=== PATIENT | male | born 1995 | race Caucasian/White ===

== ENCOUNTER 2017-01-04 11:57 | Emergency (ER) | payer BC ==
[~2017-01-04] VITALS: Ht 190.5 cm; Wt 122.7 kg
[2017-01-04 12:04] VITALS: TEMP 36.6; Ht 190.5 cm; Wt 122.7 kg
[2017-01-04] MEDS ORDERED: SODIUM CHLORIDE 0.9% 1000ML 1,000 ML IV STA (12:38)
[2017-01-04] MEDS ORDERED: KETOROLAC TROMETHAMINE 30 MG/ML VIAL IV STA (12:38)
[2017-01-04] MEDS ORDERED: DiphenhydrAMINE HCL 50 MG/ML VIAL IV STA (12:38)
[2017-01-04] MEDS ORDERED: PROCHLORPERAZINE 5 MG/ML 2 ML VIAL IV STA (12:38)
[2017-01-04] MEDS ORDERED: MAGNESIUM SULFATE 1GM / D5W 1 GM BAG IV STA (12:40)
[2017-01-04 13:09] LABS: BASO % 0.2 %; BASO ABS # 0.03 K/uL (0-0.2); COMPLETE YES; EOS % 0.1 %; HEMATOCRIT 49.2 % (42-52); IG% 0.3 %; LYMPH ABS # 1.88 K/uL (1.2-3.4); MEAN CELL VOLUME 81.9 fL (80-100); MEAN CORPUSCULAR HEMOGLOBIN 28.1 pg (25-34); MEAN CORPUSCULAR HGB CONC 34.3 g/dl (32-36); MEAN PLATELET VOLUME 10.1 fL (7.4-10.4); MONO % 8.1 %; NEUT % 77.3 %; PLATELET COUNT 326 K/uL (130-400); RED BLOOD COUNT 6.01 M/uL (4.7-6.1)
[2017-01-04 13:09] LABS: URINE APPEARANCE CLEAR (CLEAR); URINE COLOR DK YELLOW; URINE NITRITE NEG (NEG); URINE PH 5.5 (4.5-7.5); UROBILINOGEN NEG (NEG)
[2017-01-04 13:12] LABS: MANUAL MICROSCOPIC REQUIRED? NO; REVIEW REQ? NO
[2017-01-04 13:13] LABS: URINE BILIRUBIN NEG (NEG)
[2017-01-04 13:26] LABS: BUN/CREATININE RATIO 13.8 (10-20); CALCIUM 10.3 mg/dl (8.5-10.1); CREATININE 1.3 mg/dl (0.60-1.40); POTASSIUM 4.1 mmol/L (3.5-5.1)
--- NOTE | 2017-01-04 13:53 | EMERGENCY ROOM VISIT NOTE ---
History Report prepared by Cynthia: Nancy Moreira Under the Supervision of: Dr. Nolan Dodson M.D. First contact with patient: 12:21 Chief Complaint: HEADACHE Stated Complaint: HEADACHE,VOMITTING History of Present Illness The patient is a 21 year old male who presents to the Emergency Room with complaints of a constant headache for the past two weeks. The patient states that he has been having intermittent headaches since August. He would get about 1- 2 headaches per week. He states that over the past two weeks he has had a constant headache that will not go away. He rates his pain as an 8/10 in severity. The patient is also experiencing nausea and vomiting with this constant headache. He states that has been going on for two weeks as well. His vomiting is worse when he is more active, but does not resolve with rest. 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 He has not been playing football for the past two weeks. The patient had an MRI and CT scan done earlier this week in [place]. Mother states that it only showed some bulging discs in his neck. The patient has not seen a neurologist. He does have an appointment scheduled with neurology. The patient is complaining of neck pain but denies any back pain. Source of History: patient Onset: 2 weeks ago Position: head Symptom Intensity: excruciating (8/10) Timing: constant Modifying Factors (Worsening): exertion Associated Symptoms: + neck pain, + nausea, + vomiting, No back pain Review of Systems See HPI for pertinent positives & negatives. A total of 10 systems reviewed and were otherwise negative. Past Medical & Surgical Medical Problems: (1) No significant active problems Family History No pertinent history stated. Social History Smoking Status: Never Smoker Marital Status: single Housing Status: lives with roommate Occupation Status: student Current/Historical Medications No Active Prescriptions or Reported Meds Allergies Coded Allergies: No Known Allergies (Unverified , 01/04/17) Physical Exam Vital Signs Date Time Temp Pulse Resp B/P (MAP) Pulse Ox O2 Delivery O2 Flow Rate FiO2 01/04/17 14:08 60 16 145/76 96 01/04/17 13:23 54 01/04/17 13:12 56 14 144/81 98 Room Air 01/04/17 12:04 36.6 69 20 137/88 96 Room Air Physical Exam GENERAL: Patient is a healthy-appearing well-nourished 21 year old male. HEAD: Normocephalic atraumatic EYES: Ocular movements intact pupils equal and react to light OROPHARYNX mucous membranes are moist no exudates present no erythema or edema present NECK: Supple no nuchal rigidity, no evidence of meningitis or encephalitis on exam. CHEST: Good equal expansion LUNGS: Clear and equal to auscultation CARDIAC: Normal S1 and S2 ABDOMEN: Soft nontender no guarding BACK: No CVA tenderness EXTREMITIES: No pain upon palpation normal muscle strength in all groups no clubbing cyanosis or edema NEURO: Patient is following commands and answering questions appropriately. Alert and oriented x3 Cranial Nerves 2-12 grossly intact Medical Decision & Procedures Laboratory Results 01/04/17 12:52 Red Blood Count 6.01, Mean Corpuscular Volume 81.9, Mean Corpuscular Hemoglobin 28.1, Mean Corpuscular Hemoglobin Concent 34.3, Mean Platelet Volume 10.1, Neutrophils (%) (Auto) 77.3, Lymphocytes (%) (Auto) 14.0, Monocytes (%) (Auto) 8.1, Eosinophils (%) (Auto) 0.1, Basophils (%) (Auto) 0.2, Neutrophils # (Auto) 10.35, Lymphocytes # (Auto) 1.88, Monocytes # (Auto) 1.08, Eosinophils # (Auto) 0.02, Basophils # (Auto) 0.03 01/04/17 12:52 Test 01/04/17 12:45 01/04/17 12:52 Urine Color DK YELLOW Urine Appearance CLEAR (CLEAR) Urine pH 5.5 (4.5-7.5) Urine Specific [place] 1.030 (1.000-1.030) Urine Protein NEG (NEG) Urine Glucose (UA) NEG (NEG) Urine Ketones TRACE (NEG) Urine Occult Blood NEG (NEG) Urine Nitrite NEG (NEG) Urine Bilirubin NEG (NEG) Urine Urobilinogen NEG (NEG) Urine Leukocyte Esterase NEG (NEG) White Blood Count 13.40 K/uL (4.8-10.8) Red Blood Count 6.01 M/uL (4.7-6.1) Hemoglobin 16.9 g/dL (14.0-18.0) Hematocrit 49.2 % (42-52) Mean Corpuscular Volume 81.9 fL (80-100) Mean Corpuscular Hemoglobin 28.1 pg (25-34) Mean Corpuscular Hemoglobin Concent 34.3 g/dl (32-36) Platelet Count 326 K/uL (130-400) Mean Platelet Volume 10.1 fL (7.4-10.4) Neutrophils (%) (Auto) 77.3 % Lymphocytes (%) (Auto) 14.0 % Monocytes (%) (Auto) 8.1 % Eosinophils (%) (Auto) 0.1 % Basophils (%) (Auto) 0.2 % Neutrophils # (Auto) 10.35 K/uL (1.4-6.5) Lymphocytes # (Auto) 1.88 K/uL (1.2-3.4) Monocytes # (Auto) 1.08 K/uL (0.11-0.59) Eosinophils # (Auto) 0.02 K/uL (0-0.5) Basophils # (Auto) 0.03 K/uL (0-0.2) RDW Standard Deviation 38.0 fL (36.4-46.3) RDW Coefficient of Variation 12.7 % (11.5-14.5) Immature Granulocyte % (Auto) 0.3 % Immature Granulocyte # (Auto) 0.04 K/uL (0.00-0.02) Anion Gap 7.0 mmol/L (3-11) Est Creatinine Clear Calc Drug Dose 127.9 ml/min Estimated GFR () 91.0 Estimated GFR (Non- 78.5 BUN/Creatinine Ratio 13.8 (10-20) Calcium Level 10.3 mg/dl (8.5-10.1) Total Bilirubin 0.9 mg/dl (0.2-1) Direct Bilirubin 0.3 mg/dl (0-0.2) Aspartate Amino Transf (AST/SGOT) 32 U/L (15-37) Alanine Aminotransferase (ALT/SGPT) 81 U/L (12-78) Alkaline Phosphatase 111 U/L (45-117) Total Creatine Kinase 82 U/L (39-308) Total Protein 8.8 gm/dl (6.4-8.2) Albumin 4.5 gm/dl (3.4-5.0) Lipase 191 U/L (73-393) Lyme Disease IgG Antibody NEG (NEG) Lyme Disease IgM Antibody NEG (NEG) Monoscreen NEG (NEG) Labs reviewed by ED physician. Medications Administered Medications (Trade) Dose Ordered Sig/Reva Route Start Time Stop Time Status Last Admin Dose Admin Sodium Chloride 1,000 ml @ 999 mls/hr Q1H1M STAT IV 01/04/17 12:38 01/04/17 13:38 DC 01/04/17 13:04 999 MLS/HR Ketorolac Tromethamine (Toradol Inj) 30 mg NOW STAT IV 01/04/17 12:38 01/04/17 12:40 DC 01/04/17 13:01 30 MG Prochlorperazine Edisylate (Compazine Inj) 10 mg NOW STAT IV 01/04/17 12:38 01/04/17 12:40 DC 01/04/17 13:01 10 MG Diphenhydramine HCl (Benadryl Inj) 50 mg NOW STAT IV 01/04/17 12:38 01/04/17 12:40 DC 01/04/17 13:01 50 MG Magnesium Sulfate (Magnesium Sulfate) 1 gm NOW STAT IV 01/04/17 12:40 01/04/17 12:42 DC 01/04/17 13:01 1 GM ED Course 1221: Past medical records reviewed. The patient was evaluated in room B2. A complete history and physical examination was performed. 1238: Benadryl 50 mg IV, Compazine 10 mg IV, Toradol 30 mg IV, NSS 1000 ml @ 999 mls/hr IV 1240: Magnesium Sulfate 1 gm IV 1328: I spoke with the [facility]. We discussed the patient's case and they will see the patient in the office today at 2:15. 1331: I reassessed the patient at this time. He is feeling better and resting comfortably. I discussed the results and treatment plan with the patient and his mother. I answered all pertaining questions that they had. They expressed understanding and verbalized agreement. The patient will be discharged to follow up at the concussion clinic. Medical Decision Differential diagnosis: Etiologies such as migraine headache, meningitis, sinusitis, CO exposure, ICH, SAH, infection, tumor, headache, sinus thrombosis, arterial dissection, as well as others were entertained. This is a 21-year-old male who presents emergency department with a headache that has been ongoing for the past 2 weeks. The patient plays football and arrives with MRIs of his head as well as the cervical spine that were performed and [place]. The patient came to the emergency department with the hopes of seeing a neurologist. An IV was established, the patient given normal saline bolus, Toradol, Compazine, Benadryl. The patient has no evidence of meningitis encephalitis on examination. Because the patient plays football and activity seems to make his headaches worsen., I did discuss the case with the concussion clinic who agreed to see the patient today. The patient was immediately discharged from the emergency department sent to the concussion clinic. He does have a slight elevation in his white blood count cell, 13. The concussion clinic was concerned that the patient does not have a concussion but most likely has viral meningitis. He will be sent back to the emergency department for further workup. Medication Reconcilliation Current Medication List: was personally reviewed by me Blood Pressure Screening Patient's blood pressure: Elevated blood pressure Blood pressure disposition: Referred to PCP Consults Time Called: 1324 Consulting Physician: [facility] Returned Call: 1328 I spoke with the [facility]. We discussed the patient's case and they will see the patient in the office today at 2:15. Impression Primary Impression: Headache Scribe Attestation The scribe's documentation has been prepared under my direction and personally reviewed by me in its entirety. I confirm that the note above accurately reflects all work, treatment, procedures, and medical decision making performed by me. Departure Information Dispostion Home / Self-Care Prescriptions No Active Prescriptions or Reported Meds Referrals No Doctor, Assigned (PCP) Forms HOME CARE DOCUMENTATION FORM, IMPORTANT VISIT INFORMATION Patient Instructions My [facility] Additional Instructions Go Directly to [facility] (appt ao 179) [address] [facility] Follow up with DR Tapia's office You have been examined and treated today on an emergency basis only. This is not a substitute for, or an effort to provide, complete comprehensive medical care. It is impossible to recognize and treat all injuries or illnesses in a single emergency department visit. It is therefore important that you follow up closely with Dr Alexander. Call as soon as possible for an appointment. Thank you for your time and consideration. I look forward to speaking with you again soon. Please don't hesitate to call us if you have any questions. Problem Qualifiers Primary Impression: Headache Headache type: unspecified Headache chronicity pattern: unspecified pattern Intractability: not intractable Qualified Codes: R51 - Headache
[2017-01-04 14:07] LABS: LYME DISEASE AB IGG NEG (NEG); LYME DISEASE AB IGM NEG (NEG)
[2017-01-04 14:08] VITALS: BP 145/76; PULSE 60; O2SAT 96
[2017-01-04] MEDS ORDERED: ACET500C35 PO (20:12)
[2017-01-08 12:01] LABS: EBV EARLY ANTIGEN AB <9.00 U/ML
[2017-01-09] MEDS ORDERED: TRAM-10 PO (16:33)
== END 2017-01-04 14:10 | disposition home or self-care (01) ==
LOC: C.EDB 12:01
DX: R51 Headache (principal)

== ENCOUNTER 2017-01-04 15:18 | Emergency (ER) | payer BC ==
[~2017-01-04] VITALS: Ht 190.5 cm; Wt 119.9 kg
[2017-01-04 15:23] VITALS: TEMP 36.5; Ht 190.5 cm; Wt 119.9 kg
[2017-01-04] MEDS ORDERED: XYLOCAINE 1%/SOD BICARB 20 ML VIAL INFIL ONE (17:52)
[2017-01-04 18:50] LABS: CSF TOTAL PROTEIN 31.8 mg/dl (15.0-45.0)
[2017-01-04 18:51] LABS: CSF APPEARANCE CLEAR; CSF COLOR COLORLESS; CSF XANTHOCHROMIC NO XANTHOCHROMIA
[2017-01-04 18:56] LABS: CSF CHEMISTRY TUBE # 2
--- NOTE | 2017-01-04 19:54 | DIAGNOSTIC IMAGING REPORT ---
MRV HEAD WITHOUT CONTRAST CLINICAL HISTORY: elevated ICP, output MRI and CT negative TECHNIQUE: MRV of the brain COMPARISON STUDY: None FINDINGS: All major intracranial venous structures are patent. Straight sagittal and transverse sinuses are unremarkable. IMPRESSION: Normal study The above report was generated using voice recognition software. It may contain grammatical, syntax or spelling errors. Electronically signed by: Pierre Macdonald M.D. 01/04/2017 7:53 PM Dictated Date/Time: 01/04/2017 7:50 PM
[2017-01-04] MEDS ORDERED: AcetaZOLAMIDE 500 MG CAPCR PO STA (20:01)
[2017-01-04] MEDS ORDERED: ACET500C35 PO (20:12)
[2017-01-04] MEDS ORDERED: ONDANSETRON HOME PACK 4MG OD TAB PO ONE (20:15)
[2017-01-04] MEDS ORDERED: TRAMADOL HCL 50 MG HOME PACK PO ONE (20:15)
[2017-01-04 20:16] VITALS: BP 141/59; PULSE 63; O2SAT 98
--- NOTE | 2017-01-04 20:25 | EMERGENCY ROOM VISIT NOTE ---
History Report prepared by Cynthia: Carol Marie Under the Supervision of: Dr. Juan Funes M.D. First contact with patient: 15:38 Chief Complaint: REFERRED BY DOCTOR Stated Complaint: LOWER LUMBAR TEST PER DOC REFERRAL History of Present Illness The patient is a 21 year old male who presents to the Emergency Room with complaints of an intermittent headache beginning 2 weeks ago. 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 He reports that he has had an intermittent headache for the last 4 months but in the last 2 weeks it has been more constant and has significantly worsened. He notes that the pain came on with no specific cause and he did not have any specific trauma from football that he believes caused the headache. The patient states that he was seen at [place] twice for the same symptoms and reports that he has had an MRI of the head and neck. The patient states that the MRI of the neck showed degenerative disc disease and bulging discs while the MRI of the head was normal. He reports that exertion worsens his symptoms and laying down relieves his pain. He notes that at [place] he had CT scans and X-rays. He states that he has had lab work done and there is concern that his white blood cell count is high. The patient was seen at a concussion clinic today and they did not believe it was a concussion and recommended that the patient come back here for an LP. The patient complains of neck stiffness, vomiting, blurred vision, dizziness, and weight loss. He denies LOC, fevers, chills, diaphoresis, neck pain, chest pain, breathing difficulties, abdominal pain, back pain, melena, hematochezia, urinary symptoms, numbness, weakness, lymphadenopathy, rash, or other complaints. When he was seen in the ED earlier today, the patient received Toradol, compazine, and Benadryl that has relieved his head pain. Source of History: patient Onset: 2 weeks ago Position: head Quality: ache Timing: intermittent Modifying Factors (Relieving): rest, other (Toradol, Compazine, Benadryl) Review of Systems See HPI for pertinent positives and negatives. A total of ten systems were reviewed and were otherwise negative. Past Medical & Surgical Medical Problems: (1) No significant active problems Family History No pertinent family history stated. Social History Smoking Status: Never Smoker Marital Status: single Housing Status: lives with roommate Occupation Status: student Current/Historical Medications Scheduled Acetazolamide (Diamox), 500 MG PO DIRECTED Scheduled PRN Tramadol (Ultram), 50 MG PO Q6 PRN for Pain Allergies Coded Allergies: No Known Allergies (Unverified , 01/04/17) Physical Exam Vital Signs Date Time Temp Pulse Resp B/P (MAP) Pulse Ox O2 Delivery O2 Flow Rate FiO2 01/04/17 20:16 63 18 141/59 98 01/04/17 19:18 72 17 165/93 100 Room Air 01/04/17 17:00 54 16 163/83 97 Room Air 01/04/17 15:23 36.5 86 18 139/91 97 Room Air Physical Exam GENERAL: Awake, alert, well appearing, no distress HENT: Normocephalic, atraumatic. TM's normal. Oropharynx unremarkable. EYES: PERRL. EOMI. Normal conjunctiva. Sclera non-icteric. Funduscopic examination revealed unremarkable blood vessels. Questionable blurring of the optic disc on the right. NECK: Supple. No nuchal rigidity. FROM. No JVD or bruit. RESPIRATORY: CTA CARDIAC: RRR. No murmur. ABDOMEN: Soft, non distended. No tenderness to palpation. No rebound or guarding. No masses. RECTAL: Deferred. MUSCULOSKELETAL: Unremarkable. No edema. No discoloration. Gross motor strength symmetric. NEURO: Cranial nerves 2-12 grossly intact. Normal sensorium. No sensory or motor deficits noted. Speech normal. No pronator drift. Mild nuchal rigidity. SKIN: No rash or jaundice noted. LYMPH: No adenopathy. Medical Decision & Procedures ER Provider Diagnostic Interpretation: MRV revealed no evidence of thrombosis or abnormality. Laboratory Results Test 01/04/17 18:20 CSF Color COLORLESS CSF Appearance CLEAR CSF WBC 0 /uL (0-5) CSF RBC 4 /uL (0) CSF Xanthrochromic NO XANTHOCHROMIA CSF Cell Count Tube # 4 CSF Chemistry Tube # 2 CSF Glucose 56 mg/dl (40-70) CSF Total Protein 31.8 mg/dl (15.0-45.0) Laboratory results reviewed by me Medications Administered Medications (Trade) Dose Ordered Sig/Reva Route Start Time Stop Time Status Last Admin Dose Admin Ondansetron HCl (ZOFRAN ODT 4MG Home Pack) 1 homepack UD ONCE PO 01/04/17 20:15 01/04/17 20:16 DC 01/04/17 20:15 1 HOMEPACK Tramadol HCl (Ultram Home Pack) 1 homepack UD ONCE PO 01/04/17 20:15 01/04/17 20:16 DC 01/04/17 20:15 1 HOMEPACK Procedure Lumbar Puncture Indication: headache. Verbal consent was obtained after the risks and benefits were explained, including but not limited to headache, bleeding/clotting, scarring, infection, pain, and bone/joint/nerve damage. At this time, the risks of the procedure are less than the risks of NOT performing the procedure. A time out was taken and the correct patient and site identified. The patient was placed in the left lateral decubitus position and the back was prepped with betadine and draped in the standard fashion. The L3 intervertebral space was identified, anesthetized locally with 1% lidocaine without epinephrine, and the spinal needle was inserted through the skin with the bevel parallel to the dural fibers. The needle was carefully advanced into the lumbar cistern and 4 tubes of clear CSF was obtained. Opening pressure was over 42mmHg. The stylet was replaced and the needle was removed. A bandaid was placed and the patient was placed in the supine position. The patient tolerated the procedure well and there were no complications. ED Course 1537: The patient was evaluated in room C11. A complete history and physical exam was performed. 1820: I performed an LP. See procedure note. 1751: Lidocaine HCl 20ml INFIL. 1909: I spoke to Dr. Khalil of neurology. She recommended an MRV. 1915: I updated the patient and his family. They are agreeable to the MRV. Medical Decision Prior records/ancillary studies reviewed. Outpatient MR imaging and CT imaging reported as negative. Radiology reports reviewed. Triage Nursing notes reviewed and agree them. The patient's history was concerning for headache. Differential diagnosis: Etiologies such as migraine headache, meningitis, pseudotumor, sinusitis, CO exposure, ICH, SAH, infection, tumor, headache, sinus thrombosis, arterial dissection, as well as others were entertained. Physical examination findings: As above. Non-focal. ER treatment provided: Patient declined analgesia. His headache had resolved after treatment earlier today. On reassessment the patient felt well. Diamox 500 mg orally Diagnostics interpreted by me: The labs revealed an unremarkable lumbar puncture. 0 white blood cells. Gram stain unremarkable. Protein and glucose normal. Imaging studies: MRV as above Consultation: A consultation was placed with the neurologist on-call, Dr. Tammy Tapia. The case was discussed and diagnostics were reviewed. The patient appears to have pseudotumor and she recommended Diamox started after the MRV is negative. The patient was started on Diamox and will follow-up with her in the office. By the evaluation outlined above emergent etiologies such as meningitis, sinusitis, CO exposure, ICH, SAH, infection, temporal arteritis, tumor, sinus thrombosis, arterial dissection, as well as others were deemed relatively unlikely. The patient and family were informed about the findings as listed above. All questions were answered and they were very pleased with the treatment. Return instructions were outlined and the patient was discharged in stable condition. Outpatient prescription management: Diamox Referral: The patient was referred back to his primary care physician and neurology for follow-up for a recheck of the current condition. Medication Reconcilliation Current Medication List: was personally reviewed by me Blood Pressure Screening Patient's blood pressure: Elevated blood pressure Blood pressure disposition: Elevated BP felt to be situational Impression Primary Impression: Headache Additional Impression: Pseudotumor cerebri Scribe Attestation The scribe's documentation has been prepared under my direction and personally reviewed by me in its entirety. I confirm that the note above accurately reflects all work, treatment, procedures, and medical decision making performed by me. Departure Information Dispostion Home / Self-Care Prescriptions Acetazolamide (DIAMOX) 500 Mg Cap 500 MG PO DIRECTED, #30 TAB 500 mg daily for 7 days, then 500 mg twice daily Prov: Juan Funes MD 01/04/17 Referrals Mray Alexander D.O. (PCP) Patient Instructions My [facility] Additional Instructions Your lumbar puncture revealed your fluid pressure was elevated which can be consistent with a condition called pseudotumor cerebri. This is an elevated pressure within the head and is frequently associated with headaches as well as vision issues. Acetazolamide (Diamox): 500 m daily for 7 days and then one twice daily until directed otherwise by neurology. Review the package insert for all your medications. This is necessary as important health information is provided for your benefit and current care. Continue tramadol every 4 hours as needed for headache. Zofran 4 mg oral dissolving tablets: take one tablet and allow it to melt in your mouth every 4 hours as needed for nausea. DO NOT drive, drink alcohol, operate machinery, or perform dangerous activities today. You were given medications in the ER that can affect your ability to safely function or operate a vehicle. Rest today in a quiet, peaceful, dark environment and get a full 8-10 hrs of sleep tonight. Avoid loud noises, smoke/smoking, alcohol, bright lights, stress, or physical exertion today to minimize the chance the headache may return. Continue current medications. Ibuprofen(Motrin, Advil) may be used for fever or pain. Use 600mg every six hours as needed. Take with food. Avoid using more than 2400mg in a 24 hour period. Do not use 2400mg per day for more than three consecutive days without physician direction. Prolonged inappropriate use can lead to stomach upset or ulcers. (AND/OR) Acetaminophen(Tylenol) may be used for fever or pain. Use 1000mg every six hours as needed. Avoid using more than 4000mg in a 24 hour period. Return to the ER for passing out, worsening headache, vision problems, neck stiffness/pain, fevers, vomiting, worsening of your condition, or as needed. Follow-up with Dr. Tammy Tapia of neurology. Call the office Saturday morning at the number listed below. No contact sports or heavy lifting until cleared by neurology. Follow up with your primary physician next week for a recheck of your current condition. Problem Qualifiers
[2017-01-09] MEDS ORDERED: TRAM-10 PO (16:33)
== END 2017-01-04 20:27 | disposition home or self-care (01) ==
LOC: C.EDB 15:20 → C.EDC 20:27
DX: R51 Headache (principal); G93.2 Benign intracranial hypertension

== ENCOUNTER 2017-01-09 21:24 | Emergency (ER) | payer BC ==
[~2017-01-09] VITALS: Ht 190.5 cm; Wt 134.0 kg
[~2017-01-09 21:24] MED LIST: ACET500C35 PO; TRAM-10 PO
[2017-01-09 21:31] VITALS: TEMP 36.4; Ht 190.5 cm; Wt 134.0 kg
[2017-01-09 21:35] VITALS: O2SAT 96
[2017-01-09] MEDS ORDERED: MECLIZINE HCL 25 MG TAB PO STA (22:49)
[2017-01-09] MEDS ORDERED: SODIUM CHLORIDE 0.9% 1000ML 2,000 ML IV STA (22:49)
--- NOTE | 2017-01-09 22:51 | EMERGENCY ROOM VISIT NOTE ---
History Report prepared by Cynthia: Carol Marie Under the Supervision of: Dr. Nolan Dodson M.D. First contact with patient: 22:40 Chief Complaint: DIZZY Stated Complaint: DIZZY Nursing Triage Summary: Patient reports dizziness and headaches the past 2-3 weeks, seen in ED twice and was told he has extra fluid on his brain. Patient was given Diamox to help and it has made him "crazy dizzy". The headaches are better but dizziness is worse. History of Present Illness The patient is a 21 year old male who presents to the Emergency Room with complaints of constant dizziness beginning 1 week ago. The patient states that he was seen here for headaches and dizziness 2 times in the last 2-3 weeks. He reports that he was referred to the concussion clinic and sent back here to have an LP that was normal. He notes that he had an MRV and was put on Diamox that has seemed to make him severely dizzy. The patient states that his dizziness is always present even at rest and is only slightly relieved with closing his eyes. He states that standing up suddenly makes his vision go black for 2 seconds. The patient complains of high blood pressure at 180/98 and wavy vision. He reports that he has been increasing his fluids since the LP. He notes that his blood pressure drops to the 150s with standing. The patient states that his headaches have improved. Source of History: patient Onset: 1 week ago Position: other (global) Quality: other (dizziness) Timing: constant Modifying Factors (Worsening): other (standing) Modifying Factors (Relieving): other (closing eyes) Associated Symptoms: No headache Note: Pt has wavy vision and black vision with standing. Review of Systems See HPI for pertinent positives & negatives. A total of 10 systems reviewed and were otherwise negative. Past Medical & Surgical Medical Problems: (1) No significant active problems Family History No pertinent family history stated. Social History Smoking Status: Never Smoker Marital Status: single Housing Status: lives with roommate Occupation Status: student Current/Historical Medications Scheduled Acetazolamide (Diamox), 500 MG PO DIRECTED Furosemide (Lasix), 1 TAB PO DAILY Scheduled PRN Tramadol (Ultram), 50 MG PO Q6H PRN for Pain Allergies Coded Allergies: No Known Allergies (Unverified , 01/04/17) Physical Exam Vital Signs Date Time Temp Pulse Resp B/P (MAP) Pulse Ox O2 Delivery O2 Flow Rate FiO2 01/09/17 23:57 86 18 163/86 100 Room Air 01/09/17 22:56 95 140/95 115 155/99 128 125/90 01/09/17 21:46 97 01/09/17 21:35 96 Room Air 01/09/17 21:35 96 Room Air 01/09/17 21:31 36.4 100 18 151/90 100 Room Air Physical Exam GENERAL: Patient is a healthy-appearing well-nourished male HEAD: Normocephalic atraumatic EYES: Ocular movements intact pupils equal and react to light OROPHARYNX mucous membranes are moist no exudates present no erythema or edema present NECK: Supple no nuchal rigidity CHEST: Good equal expansion LUNGS: Clear and equal to auscultation CARDIAC: Normal S1 and S2 ABDOMEN: Soft nontender no guarding BACK: No CVA tenderness EXTREMITIES: No pain upon palpation normal muscle strength in all groups no clubbing cyanosis or edema NEURO: Patient is following commands and answering questions appropriately. Alert and oriented x3 Cranial Nerves 2-12 grossly intact Medical Decision & Procedures Laboratory Results 01/09/17 23:05 Red Blood Count 5.37, Mean Corpuscular Volume 81.2, Mean Corpuscular Hemoglobin 28.5, Mean Corpuscular Hemoglobin Concent 35.1, Mean Platelet Volume 10.6, Neutrophils (%) (Auto) 55.8, Lymphocytes (%) (Auto) 30.8, Monocytes (%) (Auto) 11.6, Eosinophils (%) (Auto) 1.3, Basophils (%) (Auto) 0.3, Neutrophils # (Auto ) 5.07, Lymphocytes # (Auto) 2.80, Monocytes # (Auto) 1.05, Eosinophils # (Auto ) 0.12, Basophils # (Auto) 0.03 01/09/17 23:05 Test 01/09/17 23:05 White Blood Count 9.09 K/uL (4.8-10.8) Red Blood Count 5.37 M/uL (4.7-6.1) Hemoglobin 15.3 g/dL (14.0-18.0) Hematocrit 43.6 % (42-52) Mean Corpuscular Volume 81.2 fL (80-100) Mean Corpuscular Hemoglobin 28.5 pg (25-34) Mean Corpuscular Hemoglobin Concent 35.1 g/dl (32-36) Platelet Count 195 K/uL (130-400) Mean Platelet Volume 10.6 fL (7.4-10.4) Neutrophils (%) (Auto) 55.8 % Lymphocytes (%) (Auto) 30.8 % Monocytes (%) (Auto) 11.6 % Eosinophils (%) (Auto) 1.3 % Basophils (%) (Auto) 0.3 % Neutrophils # (Auto) 5.07 K/uL (1.4-6.5) Lymphocytes # (Auto) 2.80 K/uL (1.2-3.4) Monocytes # (Auto) 1.05 K/uL (0.11-0.59) Eosinophils # (Auto) 0.12 K/uL (0-0.5) Basophils # (Auto) 0.03 K/uL (0-0.2) RDW Standard Deviation 38.0 fL (36.4-46.3) RDW Coefficient of Variation 12.8 % (11.5-14.5) Immature Granulocyte % (Auto) 0.2 % Immature Granulocyte # (Auto) 0.02 K/uL (0.00-0.02) Anion Gap 7.0 mmol/L (3-11) Est Creatinine Clear Calc Drug Dose 144.9 ml/min Estimated GFR () 100.3 Estimated GFR (Non- 86.5 BUN/Creatinine Ratio 13.6 (10-20) Calcium Level 9.0 mg/dl (8.5-10.1) Total Bilirubin 0.2 mg/dl (0.2-1) Direct Bilirubin < 0.1 mg/dl (0-0.2) Aspartate Amino Transf (AST/SGOT) 19 U/L (15-37) Alanine Aminotransferase (ALT/SGPT) 68 U/L (12-78) Alkaline Phosphatase 92 U/L (45-117) Total Protein 7.4 gm/dl (6.4-8.2) Albumin 3.9 gm/dl (3.4-5.0) Thyroid Stimulating Hormone (TSH) 2.250 uIu/ml (0.300-4.500) Labs reviewed by ED physician. Medications Administered Medications (Trade) Dose Ordered Sig/Reva Route Start Time Stop Time Status Last Admin Dose Admin Sodium Chloride 2,000 ml @ 999 mls/hr Q2H1M STAT IV 01/09/17 22:49 01/10/17 00:49 DC 01/09/17 23:05 999 MLS/HR Meclizine HCl (Antivert Tab) 25 mg NOW STAT PO 01/09/17 22:49 01/09/17 22:51 DC 01/09/17 22:58 25 MG ECG Indication: other (dizzy) Rate (beats per minute): 98 Rhythm: normal sinus Findings: no acute ischemic change, no ectopy ED Course 2240: Past medical records reviewed. The patient was evaluated in room C1. A complete history and physical examination was performed. 9: Antivert Tab 25mg PO, Sodium Chloride 2000 ml @ 999 mls/hr IV. 2358: I reevaluated and updated the patient. 0007: Upon reexamination the patient is doing well. I discussed results and treatment plan with the patient. He verbalizes agreement and understanding. The patient is ready for discharge. Medical Decision Differential diagnosis: Etiologies such as benign positional vertigo, dehydration, hypovolemia, anemia, tumor, infection, hypoglycemia, electrolyte abnormalities, cardiac sources, intracerebral event, toxicologic, neurologic, as well as others were entertained. This is a 21-year-old male who presents emergency department complaining of dizziness. The patient was recently diagnosed with pseudotumor cerebri and started on acetazolamide his headache has felt better however he has dizziness that is present no matter what he is doing . He has no evidence of meningitis or encephalitis on examination. An IV was established, the patient given normal saline bolus 2. The patient's sodium level is actually elevated today at 146. His chloride level is also elevated along with it. Bleeding of the side effects of acetazolamide I feel that this is most likely the culprit. I cautioned the patient to stop taking that and we will attempt to take Lasix instead however I strongly cautioned the patient to increase his fluid intake over the next 2 days. In addition I also strongly recommended that the patient follow-up with neurology. They do have an upcoming appointment on Saturday. Medication Reconcilliation Current Medication List: was personally reviewed by me Blood Pressure Screening Patient's blood pressure: Elevated blood pressure Blood pressure disposition: Referred to PCP Impression Primary Impression: Dizziness Additional Impression: Hypernatremia Scribe Attestation The scribe's documentation has been prepared under my direction and personally reviewed by me in its entirety. I confirm that the note above accurately reflects all work, treatment, procedures, and medical decision making performed by me. Departure Information Dispostion Home / Self-Care Prescriptions Furosemide (LASIX) 40 Mg Tab 1 TAB PO DAILY for 30 Days, #30 TAB Prov: Nolan Dodson MD 01/10/17 Referrals No Doctor, Assigned (PCP) Forms HOME CARE DOCUMENTATION FORM, IMPORTANT VISIT INFORMATION Patient Instructions [facility] Additional Instructions Stop Acetazolamide (Sodium 146) Increase fluids next 48 hours Need follow up with Neurology You have been examined and treated today on an emergency basis only. This is not a substitute for, or an effort to provide, complete comprehensive medical care. It is impossible to recognize and treat all injuries or illnesses in a single emergency department visit. It is therefore important that you follow up closely with your PCP. Call as soon as possible for an appointment. Thank you for your time and consideration. I look forward to speaking with you again soon. Please don't hesitate to call us if you have any questions. Problem Qualifiers
[2017-01-09 23:22] LABS: BASO % 0.3 %; BASO ABS # 0.03 K/uL (0-0.2); COMPLETE YES; EOS % 1.3 %; HEMATOCRIT 43.6 % (42-52); IG% 0.2 %; LYMPH % 30.8 %; MEAN CELL VOLUME 81.2 fL (80-100); MEAN CORPUSCULAR HEMOGLOBIN 28.5 pg (25-34); MEAN CORPUSCULAR HGB CONC 35.1 g/dl (32-36); MEAN PLATELET VOLUME 10.6 fL (7.4-10.4); MONO % 11.6 %; NEUT % 55.8 %; PLATELET COUNT 195 K/uL (130-400); RED BLOOD COUNT 5.37 M/uL (4.7-6.1); WHITE BLOOD COUNT 9.09 K/uL (4.8-10.8)
[2017-01-09 23:43] LABS: ALT/SGPT 68 U/L (12-78); AST/SGOT 19 U/L (15-37); BLOOD UREA NITROGEN 16 mg/dl (7-18); BUN/CREATININE RATIO 13.6 (10-20); CARBON DIOXIDE 24 mmol/L (21-32); CHLORIDE 115 mmol/L (98-107); GLUCOSE 77 mg/dl (70-99); POTASSIUM 3.8 mmol/L (3.5-5.1); SODIUM 146 mmol/L (136-145)
[2017-01-09 23:54] LABS: ALKALINE PHOSPHATASE 92 U/L (45-117)
[2017-01-09 23:57] VITALS: BP 163/86; PULSE 86; O2SAT 100
[2017-01-10] MEDS ORDERED: FURO40TA3 PO (00:06)
== END 2017-01-10 00:19 | disposition home or self-care (01) ==
LOC: C.EDB 21:25 → C.EDC 01-10 00:19
DX: R42 Dizziness and giddiness (principal); E87.0 Hyperosmolality and hypernatremia